=== PATIENT | male | born 1965 | race Asian ===

== ENCOUNTER 2017-04-04 10:26 | Outpatient (CLI) | payer BC ==
--- NOTE | 2017-04-04 13:11 | XRAY Report ---
THREE-VIEW RIGHT FOOT: 04/04/2017 CLINICAL INDICATION: Painful first metatarsophalangeal joint. FINDINGS: AP, lateral, oblique views of the right foot demonstrate osteoarthritis of the first metat arsophalangeal joint and interphalangeal joints. There is no evidence of acute fracture or dislocati on. No radiopaque foreign body is seen in the soft tissues. IMPRESSION: OSTEOARTHRITIS OF THE FIRST METATARSOPHALANGEAL JOINT. JOB #: [id number] EXT JOB #:[id number]
== END 2017-04-04 10:27 | disposition home or self-care (01) ==
LOC: DI 10:26
PROVIDERS: ATTEND Podiatrist
DX: M25.571 Pain in right ankle and joints of right foot (principal); M19.071 Primary osteoarthritis, right ankle and foot